=== PATIENT | male | born 1975 | race Caucasian/White ===

== ENCOUNTER 2021-09-21 09:47 | Emergency (ER) | payer SELFPAY ==
[2021-09-21] MEDS: Benzocaine 20% Topical Spray UD MUCMEM ONE (10:15)
[2021-09-21] MEDS: Lidocaine 2% Viscous Solution 15 ML UD PO ONE (10:15)
[2021-09-21] MEDS: Amoxicillin/Clavulanate K 875-125 MG Tab PO ONE (10:16)
== END 2021-09-21 10:20 | disposition home or self-care (01) ==
LOC: MW.ED 09:47
DX: K04.7 Periapical abscess without sinus (principal); Z88.8 Allergy status to other drugs, medicaments and biological substances; Z79.01 Long term (current) use of anticoagulants; Z79.899 Other long term (current) drug therapy
CPT/HCPCS: 99282; A9270